=== PATIENT | male | born 1990 | race African-American/Black ===

== ENCOUNTER 2018-04-15 08:22 | Day surgery (SDC) | payer OTHER ==
[2018-04-15] MEDS ORDERED: BUPIVACAINE HCL 0.5 % INJ/PF 30 ML SDV ONE (08:30)
[2018-04-15] MEDS ORDERED: FENTANYL CITRATE INJ/PF 100 MCG/2 ML AMPUL ONE (10:10)
[2018-04-15] MEDS ORDERED: PROPOFOL INJ 200 MG/20 ML VIAL IV ONE (10:10)
[2018-04-15] MEDS ORDERED: MIDAZOLAM 2 MG/2 ML INJ ONE (10:10)
[2018-04-15] MEDS ORDERED: CEFAZOLIN 2 GM/D5W RTU 2 GM/50 ML RTUPB IV ONE (10:11)
[2018-04-15] MEDS ORDERED: DEXAMETHASONE SOD PHOSPHATE INJ 4 MG/1 ML VIAL ONE (10:41)
[2018-04-15] MEDS ORDERED: ONDANSETRON HCL INJ/PF 4 MG/2 ML SDV ONE (10:41)
[2018-04-15] MEDS ORDERED: MEPERIDINE HCL/PF INJ 25 MG/1 ML DISP.SYRIN IV PRN (10:49)
[2018-04-15] MEDS ORDERED: DIPHENHYDRAMINE HCL 50 MG/ML VIAL IV PRN (10:49)
[2018-04-15] MEDS ORDERED: PROMETHAZINE HCL INJ 25 MG/1 ML VIAL IV PRN (10:49)
[2018-04-15] MEDS ORDERED: FENTANYL CITRATE INJ/PF 100 MCG/2 ML AMPUL IV PRN ×3 (10:49)
[2018-04-15] MEDS: FENTANYL CITRATE INJ/PF 100 MCG/2 ML AMPUL ONE ×2 (11:48→12:00)
[2018-04-15] MEDS ORDERED: ACETAMINOPHEN 1,000 MG/100 ML RTUPB IV ONE (11:56)
[2018-04-15] MEDS ORDERED: KETOROLAC TROMETHAMINE INJ/PF 30 MG/1 ML SDV ONE (11:56)
[2018-04-15] MEDS ORDERED: OXYCODONE-ACETAMINOPHEN 5-325 MG TABLET PO PRN (12:28)
[2018-04-15] MEDS ORDERED: ONDANSETRON HCL INJ/PF 4 MG/2 ML SDV IV PRN (12:29)
[2018-04-15 14:46] VITALS: BP 119/60
--- NOTE | 2018-04-15 14:46 | OPERATIVE REPORT E ---
Operative Report NAME: ELIEL NAVARRO : 1990 AGE: 27Y DATE OF SURGERY: 04/15/2018 ROOM: PREOPERATIVE DIAGNOSIS: Right small finger proximal interphalangeal joint radial collateral ligament disruption. POSTOPERATIVE DIAGNOSIS: Right small finger proximal interphalangeal joint radial collateral ligament disruption. PROCEDURE: Right small finger PIP radial collateral ligament repair. SURGEON: AZIZA JULES M.D. ANESTHESIA: General. BLOOD LOSS: Minimal. COMPLICATIONS: None. 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 Following the injury, he had complete instability of the radial collateral ligaments with no discernable endpoint. DESCRIPTION OF PROCEDURE: Following induction of general anesthetic and administration of antibiotics, the patient was placed supine on the operating room table. Bony prominences were padded. Tourniquet was placed proximally on the right arm, but not inflated. The right upper extremity was sterilely prepped with Chloraprep and draped in a standard fashion. The arm was exsanguinated and tourniquet inflated to 100 mm of systolic pressure. A lateral incision was made over the PIP joint. Sharp dissection through skin and blunt dissection through subcutaneous tissue. Care was taken to protect superficial branch nerves. The radial collateral ligament was identified. It was completely avulsed from its origin on the proximal phalanx. In addition to its avulsion, it actually tore from the proximal most superior aspect of the ligament; it was both a ligament tear as well as avulsion. Scar tissue was debrided. The ligament was visualized. Slight decortication at the origin of the collateral ligament was performed to improve healing. [employer] anchor was placed at the isometric point of the collateral ligament origin. With the sutures attached, the ligament was paired back to its origin. The sutures were tied, and at this point, the ligament itself was partially torn from its most proximal component. The same sutures were used to repair the ligament side to side as well. Following repair of the ligament, the digits were stressed. Stability of the radial collateral ligament was completely restored. The wound was irrigated. The skin was reapproximated with nylon suture. Marcaine 0.25% was injected for postoperative analgesia. A bulky sterile dressing and splint were applied. The patient tolerated the procedure well without complications. He was brought to the recovery room in stable condition. DICTATING PHYSICIAN: AZIZA JULES M.D. [id number] Y#: [id number] ID: [id number] JOB#: [id number] ACCT: [id number] cc:AZIZA JULES M.D. >
--- NOTE | 2018-04-15 15:03 | RADIOLOGY REPORT (SQ) ---
EXAM DESCRIPTION: NO CHG FLUORO; FINGER RIGHT COMPLETED DATE/TIME: 04/15/2018 2:51 pm REASON FOR STUDY: RIGHT FINGER/PINKY/ COLLATERAL LIGAMENT REPAIR ASST WITH FLUORO IN OR COMPARISON: None. FLUOROSCOPY TIME: 1 second To Images saved to PACS LIMITATIONS: None. PROCEDURE: Collateral ligament repair FINDINGS: 2 images show a small screw type anchor in the head of the 5th proximal phalanx. IMPRESSION: Collateral ligament repair. Refer to operative note for further information. COMMENT: PQRS 6045F: Fluoroscopy time of the procedure is documented in the report. TECHNICAL DOCUMENTATION: JOB ID: [id number] [email or web address]- All Rights Reserved Reading location - IP/workstation name: [email or web address]
--- NOTE | 2018-04-15 15:03 | RADIOLOGY REPORT (SQ) ---
EXAM DESCRIPTION: NO CHG FLUORO; FINGER RIGHT COMPLETED DATE/TIME: 04/15/2018 2:51 pm REASON FOR STUDY: RIGHT FINGER/PINKY/ COLLATERAL LIGAMENT REPAIR ASST WITH FLUORO IN OR COMPARISON: None. FLUOROSCOPY TIME: 1 second To Images saved to PACS LIMITATIONS: None. PROCEDURE: Collateral ligament repair FINDINGS: 2 images show a small screw type anchor in the head of the 5th proximal phalanx. IMPRESSION: Collateral ligament repair. Refer to operative note for further information. COMMENT: PQRS 6045F: Fluoroscopy time of the procedure is documented in the report. TECHNICAL DOCUMENTATION: JOB ID: [id number] [employer]- All Rights Reserved Reading location - IP/workstation name: [email or web address]
== END 2018-04-15 14:40 | disposition home or self-care (01) ==
LOC: OROUT 08:22
PROVIDERS: ATTEND Orthopaedic Surgery
DX: S63.416A Traumatic rupture of collateral ligament of right little finger at metacarpophalangeal and interphalangeal joint, initial encounter (principal); W19.XXXA Unspecified fall, initial encounter; Y93.66 Activity, soccer
CPT/HCPCS: 73140; 26540; J2250; J3490; J1100; J3010; J1885; J2405; J2704; J0690; J0131; 01810